=== PATIENT | female | born 1975 | race Two or more races ===

== ENCOUNTER 2017-03-08 05:35 | Emergency (ER) | payer BC ==
[~2017-03-08] VITALS: Ht 165.1 cm; Wt 74.8 kg
--- NOTE | 2017-03-08 05:50 | NUR ---
To bed 12 a 41 yo female bibself with c/o "JEAN pain x2 weeks, denies trauma, was seen by pmd yesterday and is taking norco." Per patient, pain is getting worse in spite medication use, pain is worse with movement, patient is also s/p ventuza treatment. Distal CMS is intact. VSS. No s/s of acute distress. Breathing even and unlabored. Gowned. Initiated comfort measures. Awaiting for er md smith.
--- NOTE | 2017-03-08 06:15 | NUR ---
Dr Rebolledo at bedside.
[2017-03-08] MEDS ORDERED: MORPHINE SULFATE INJ 4 MG/ML DISP.SYRIN ONE (06:17)
--- NOTE | 2017-03-08 06:25 | NUR ---
traditional [facility] health practitioner at bedside.
--- NOTE | 2017-03-08 06:26 | NUR ---
Medicated patient as ordered.
[2017-03-08] MEDS ORDERED: MORPHINE SULFATE INJ 2 MG/ML DISP.SYRIN IM ONE (06:30)
--- NOTE | 2017-03-08 07:13 | NUR ---
Patient discharged to home in stable condition. Written and verbal after care instructions given. Patient verbalizes understanding of instruction. Patient is ambulatory with steady gait, accompanied by father going home. Instructed not to drive.
[2017-03-08 07:16] VITALS: BP 120/71
== END 2017-03-08 07:16 | disposition home or self-care (01) ==
LOC: ER 05:35
DX: M75.22 Bicipital tendinitis, left shoulder (principal); F17.200 Nicotine dependence, unspecified, uncomplicated
CPT/HCPCS: 73030-TC; 73080-TC; A4606; J2270; Z7610